=== PATIENT | female | born 1950 | race Asian ===

== ENCOUNTER 2024-09-15 11:41 | Emergency (ER) | payer MEDICARE, SELFPAY ==
[2024-09-15 11:44] VITALS: BP 158/69; PULSE 61; RESP 14; TEMP 37.2; O2SAT 98
[2024-09-15 12:44] VITALS: BP 140/78; PULSE 60; RESP 18; TEMP 37; O2SAT 98
[2024-09-15] MEDS: Ondansetron 4 MG/2 ML Vial IV (12:59)
[2024-09-15] MEDS: 0.9% Normal Saline (1000mL) 1,000 ML 999 ML IV (12:59)
[2024-09-15 13:00] VITALS: BP 147/68; PULSE 61; RESP 18; O2SAT 98
[2024-09-15 13:00] LABS: Absolute Lymphocyte Count 1.78 X10^3/uL (0.83-4.51); Absolute Neutrophil Count 4.5 X10^3/uL (2.0-7.7); Basophil# 0.09 X10^3/uL; Basophil% 1.3 % (0-1); Eosinophil# 0.09 X10^3/uL; Eosinophils% 1.3 % (0-5); Hemoglobin 12.1 g/dL (12.0-15.0); Lymphocyte # 1.78 X10^3/ul (0.83-4.51); Lymphocyte % 25.5 % (19-41); Mean Corpuscular Hgb 24.8 pg (27.0-32.0); Mean Corpuscular Volume 79.9 fL (81-99); Mean Platelet Vol. 10.8 fl (6.2-12.0); Monocyte% 7.2 % (0-10); NRBC Flagged by Analyzer 0 % (0-5); Neutrophil % 64.3 % (47-70); Platelet Count 223 K/mm3 (150-450); RBC Distribution Width CV 15.2 % (11.6-14.6); RBC Distribution Width SD 43.8 fl (35.1-43.9); Red Blood Count 4.88 M/mm3 (4.2-5.4)
--- NOTE | 2024-09-15 13:14 | EX.ED.DYSGE1 ---
HPI <TRUMAN Rhoades - Last Filed: 09/15/24 15:29> History of Present Illness Chief Complaint: Weakness Narrative Narrative: Patient presenting today with her daughter and son-in-law due to generalized weakness, constipation, and vomiting she has had over the past few days. She has been constipated for about 4 days, yesterday she took Dulcolax and MiraLAX and had a small watery bowel movement, she is passing gas. No history of bowel obstruction. She has had a few episodes of vomiting over the past 2 days. Patient denies having abdominal pain, fevers, chills, flulike symptoms, chest pain, and shortness of breath. She has a PMH of YEE, HTN, T2DM, and GERD. Patient is Cantonese speaking, her family is interpreting. PFSH <TRUMAN Rhoades - Last Filed: 09/15/24 15:29> PFSH Home Medications ?Medication ?Instructions ?Recorded ?Last Taken ?Type guaifenesin 600 mg tablet, 600 mg PO BID ##14 07/10/14 Unknown Rx extended release 12 hr (Mucus Relief ER) ondansetron 4 mg disintegrating 4 mg PO Q8H PRN PRN Nausea #10 tabs 09/15/24 Unknown Rx tablet Allergy/AdvReac Type Severity Reaction Status Date / Time No Known Allergies Allergy Verified 09/15/24 11:45 Social History Smoking Status: Never smoker ROS <TRUMAN Rhoades - Last Filed: 09/15/24 15:29> ROS ED Constitutional Constitutional ED: Denies chills or fever(s) Cardiovascular Cardiovascular: Denies chest pain Respiratory/Chest Respiratory/Chest: Denies cough or dyspnea Gastrointestinal Gastrointestinal: Reports constipation, nausea and vomiting; Denies abdominal pain or diarrhea Genitourinary Genitourinary ED: Denies dysuria or hematuria Musculoskeletal Musculoskeletal: Denies arthralgias or myalgias Integumentary Denies rash Neurologic Neurologic: Reports weakness EXAM <TRUMAN Rhoades - Last Filed: 09/15/24 15:29> Physical Exam Const Vital Signs: 09/15/24 11:44 09/15/24 11:47 09/15/24 12:44 Temperature 98.9 F 98.6 F Temperature Source Oral Temporal Pulse Rate 61 60 Respiratory Rate 14 18 Respiratory Effort Normal Respiratory Pattern Normal Blood Pressure 158/69 H 140/78 H Blood Pressure Mean 98 98 Pulse Ox 98 98 Oxygen Delivery Method Room Air Room Air 09/15/24 13:00 09/15/24 14:00 09/15/24 15:16 Temperature 98 F Temperature Source Pulse Rate 61 61 60 Respiratory Rate 18 18 16 Respiratory Effort Respiratory Pattern Blood Pressure 147/68 H 133/54 H 121/57 H Blood Pressure Mean 94 80 78 Pulse Ox 98 98 100 Oxygen Delivery Method Room Air Room Air Positive well nourished, well developed and no apparent distress General Appearance ED: well developed HEENT Reports normocephalic and head/scalp atraumatic Mouth ED: Yes moist mucous membranes normal Eyes PERRL and EOMs intact bilaterally Neck full ROM and supple Chest Wall inspection of chest normal Resp normal respiratory effort and clear to auscultation bilaterally Cardio regular rate and regular rhythm GI soft to palpation, non-tender, non-distended and no masses Back/Spine normal ROM and normal to inspection Extremity normal to inspection and full ROM Neuro oriented x3, CN's II-XII intact bilaterally, moves all extremities, no focal motor deficits and no sensory deficits noted Sensorium / Orientation: awake and alert Psych mental status grossly normal and thought process normal Skin no rashes or lesions noted and no wounds <Dr. Chris Cervantes DO - Last Filed: 09/15/24 15:10> Physical Exam Const Vital Signs: 09/15/24 11:44 09/15/24 11:47 09/15/24 12:44 Temperature 98.9 F 98.6 F Temperature Source Oral Temporal Pulse Rate 61 60 Respiratory Rate 14 18 Respiratory Effort Normal Respiratory Pattern Normal Blood Pressure 158/69 H 140/78 H Blood Pressure Mean 98 98 Pulse Ox 98 98 Oxygen Delivery Method Room Air Room Air 09/15/24 13:00 09/15/24 14:00 09/15/24 15:16 Temperature 98 F Temperature Source Pulse Rate 61 61 60 Respiratory Rate 18 18 16 Respiratory Effort Respiratory Pattern Blood Pressure 147/68 H 133/54 H 121/57 H Blood Pressure Mean 94 80 78 Pulse Ox 98 98 100 Oxygen Delivery Method Room Air Room Air MDM <Guera Cannon PA - Last Filed: 09/15/24 15:29> MDM MDM Narrative Medical decision making narrative: Patient presenting today due to generalized weakness, constipation, nausea, and vomiting that have been ongoing over the past few days. The nausea and vomiting started 2 days ago. She has been constipated over the past 4 days but has passed a small amount of stool and is still passing gas. She started a bowel regimen consisting of Dulcolax and MiraLAX yesterday. She is nontoxic-appearing. She denies having abdominal pain, her abdomen is soft and nontender. She will be given IV fluids and Zofran. Labs will be obtained to assess for leukocytosis, electrolyte derangement, hepatobiliary etiology, pancreatitis, LUIZ, and UTI. Her CBC, CMP, lipase, and UA are unremarkable. Acute abdominal x-ray shows constipation. No evidence of bowel obstruction. On reexamination she reports significant improvement of her symptoms. Her nausea is significantly improved. I will give her a prescription for Zofran for home. Recommended she follow-up closely with her PCP, return instructions discussed and patient discharged home in stable condition. She is to continue her bowel regimen. Lab Data Attestation: I reviewed the patient's lab results. Labs: Laboratory Results - last 24 hr 09/15/24 09/15/24 12:49 14:31 WBC 7.0 RBC 4.88 Hgb 12.1 Hct 39.0 MCV 79.9 L MCH 24.8 L MCHC 31.0 L RDW Std Deviation 43.8 RDW Coeff of Keshav 15.2 H Plt Count 223 MPV 10.8 Immature Gran % (Auto) 0.400 Neut % (Auto) 64.3 Lymph % (Auto) 25.5 [place] % (Auto) 7.2 Eos % (Auto) 1.3 Baso % (Auto) 1.3 H Absolute Neuts (auto) 4.5 Absolute Lymphs (auto) 1.78 Nucleated RBC % 0 Sodium 137 Potassium 4.6 Chloride 102 Carbon Dioxide 25.4 Anion Gap 9 BUN 11 Creatinine 0.84 Est GFR (MDRD) Non-Af 72 BUN/Creatinine Ratio 13.1 Glucose 111 H Calcium 10.1 Total Bilirubin 0.55 AST 35 H ALT 15 Alkaline Phosphatase 75 Total Protein 7.6 Albumin 4.1 Globulin 3.5 Albumin/Globulin Ratio 1.2 Lipase 38 Urine Color Straw Urine Clarity Clear Urine pH 6.5 Ur Specific [place] 1.010 Urine Protein Negative Urine Glucose (UA) Normal Urine Ketones 5 H Urine Occult Blood Negative Urine Nitrite Negative Urine Bilirubin Negative Urine Urobilinogen Normal Ur Leukocyte Esterase Negative Urine RBC 0 SEEN Urine WBC 0 SEEN Ur Squamous Epith Cells 0 SEEN Urine Bacteria 0 SEEN Urine Mucus 0 SEEN Radiography X-Ray: Read by ED Physician Diagnostic Testing: Clinical Impression(s) from Imaging Studies Acute Abdomen Series 09/15/24 13:52 IMPRESSION: Fecal retention in the colon consistent with constipation. Reading Location: [facility] <Dr. Chris Cervantes, DO - Last Filed: 09/15/24 15:10> [facility] Lab Data Labs: Laboratory Results - last 24 hr 09/15/24 09/15/24 12:49 14:31 WBC 7.0 RBC 4.88 Hgb 12.1 Hct 39.0 MCV 79.9 L MCH 24.8 L MCHC 31.0 L RDW Std Deviation 43.8 RDW Coeff of Keshav 15.2 H Plt Count 223 MPV 10.8 Immature Gran % (Auto) 0.400 Neut % (Auto) 64.3 Lymph % (Auto) 25.5 [place] % (Auto) 7.2 Eos % (Auto) 1.3 Baso % (Auto) 1.3 H Absolute Neuts (auto) 4.5 Absolute Lymphs (auto) 1.78 Nucleated RBC % 0 Sodium 137 Potassium 4.6 Chloride 102 Carbon Dioxide 25.4 Anion Gap 9 BUN 11 Creatinine 0.84 Est GFR (MDRD) Non-Af 72 BUN/Creatinine Ratio 13.1 Glucose 111 H Calcium 10.1 Total Bilirubin 0.55 AST 35 H ALT 15 Alkaline Phosphatase 75 Total Protein 7.6 Albumin 4.1 Globulin 3.5 Albumin/Globulin Ratio 1.2 Lipase 38 Urine Color Straw Urine Clarity Clear Urine pH 6.5 Ur Specific [place] 1.010 Urine Protein Negative Urine Glucose (UA) Normal Urine Ketones 5 H Urine Occult Blood Negative Urine Nitrite Negative Urine Bilirubin Negative Urine Urobilinogen Normal Ur Leukocyte Esterase Negative Urine RBC 0 SEEN Urine WBC 0 SEEN Ur Squamous Epith Cells 0 SEEN Urine Bacteria 0 SEEN Urine Mucus 0 SEEN Radiography Diagnostic Testing: Clinical Impression(s) from Imaging Studies Acute Abdomen Series 09/15/24 13:52 IMPRESSION: Fecal retention in the colon consistent with constipation. Reading Location: [facility] Treatment and Re-Evaluation :: I have personally performed a face to face assessment of the patient and have reviewed the REN Note. I performed a substantive portion of the visit including all aspects of the following. My squires findings include: History: Patient presents with constipation, nausea, and vomiting that has been getting worse over the last 3 to 4 days. Family states it is gradually getting worse. Family states patient had a recent cough. Family states she has not had a bowel movement in last 3 to 4 days. Family states the patient has not been eating or drinking much because of the constipation. Family denies any fevers or chills. Exam: Vital signs are stable. Patient is afebrile. Patient is in no acute distress. Oral mucosa is pink and moist. Neck is supple. Trachea is midline. There is no JVD. Heart was regular rate and rhythm. Lungs are clear and equal bilaterally. Abdomen is soft. Bowel sounds are normal. There is no tenderness. There is no rebound or guarding noted. There is no distention noted. Cranial nerves II through XII are intact. There are no focal motor or sensory deficits noted. Medical Decision Making: Differential diagnosis includes dehydration, electrolyte abnormality, constipation, bowel obstruction, urinary tract infection, and pancreatitis. CBC will be obtained to assess for leukocytosis and anemia. Comprehensive metabolic profile will be obtained to assess for hepatic function, renal function, and electrolyte abnormality. Lipase will be obtained to assess for pancreatitis. Urinalysis will be obtained to assess for urinary tract infection and hematuria. Acute abdominal x-rays will be obtained to assess for constipation, bowel obstruction, perforation. Patient was given IV fluids and Zofran. CBC was reviewed and was within normal limits. Comprehensive metabolic profile was reviewed and was within normal limits. Lipase was reviewed and was normal at 38. Acute abdominal x-rays were obtained. There are 5 views. On my independent interpretation, there he has retained stool throughout the colon suggestive of constipation. There is no free air or evidence of obstruction. Radiologist also interpreted the x-rays and agrees. Urinalysis was reviewed. There is no evidence of urinary tract infection or hematuria. Patient was feeling better on reevaluation. Patient and family were advised of the findings. Patient was instructed to follow-up with her primary care physician in 5 to 7 days. Family understood and was agreeable with the plan. All questions were answered. Discharge Plan Triage Chief Complaint: Weakness ED Midlevel Provider: Guera Cannon ED Provider: Chris Cervantes Dx/Rx/DC Orders Clinical Impression: Weakness, Nausea & vomiting, Constipation Instructions: ED Constipation (Adult), ED Vomiting (Adult) Prescriptions: New ondansetron 4 mg tablet,disintegrating 4 mg PO Q8H PRN PRN (Reason: Nausea) Qty: 10 0RF No Action guaifenesin [Mucus Relief ER] 600 MG tablet 600 mg PO BID Qty: 14 0RF Primary Care Provider: Lou Kelley Referrals: Care Physician,No Primary [Non-Staff] - Activity Restrictions/Additional Instructions: Follow-up with your PCP in the next 5 to 7 days, return for any worsening symptoms. Print Language: Indonesian Disposition Disposition: Home, Self Care Discharge Date/Time: 09/15/24 15:25
[2024-09-15 13:30] LABS: Lipase 38 U/L (13-75)
[2024-09-15 13:32] LABS: ALB/GLOB Ratio 1.2 RATIO (0.9-2.4); AST(SGOT) 35 U/L (<=31); Alanine Aminotransfer ALT/SGPT 15 U/L (<=34); Albumin, Serum 4.1 g/dL (3.4-4.8); Alkaline Phosphatase 75 U/L (35-104); Anion Gap 9 (5-15); BUN 11 mg/dL (4-19); BUN/Creat Ratio 13.1 RATIO (10-20); Calcium,Total 10.1 mg/dL (7.6-11.0); Carbon Dioxide 25.4 mmol/L (21.0-32.0); Chloride 102 mmol/L (98-108); Creatinine, Serum 0.84 mg/dL (0.70-1.20); EST Glomerular Filtration Rate 72 (>60); Globulin 3.5 g/dL (2.2-4.2); Glucose 111 mg/dL (70-99); Potassium 4.6 mmol/L (3.3-5.1); Protein, Total 7.6 g/dL (5.9-8.4); Sodium Level 137 mmol/L (133-145); Total Bilirubin 0.55 mg/dL (0.00-1.30)
--- NOTE | 2024-09-15 13:52 | RAD_ITS ---
EXAM: XR Abdomen, 2 Views and XR Chest, 1 View CLINICAL INDICATION: CONSTIPATION TECHNIQUE: Frontal view of the chest, frontal view of the abdomen/pelvis and upright or decubitus view of the abdomen. COMPARISON: No relevant prior studies available. FINDINGS: LUNGS AND PLEURAL SPACES: Multiple tubular opacity over the right abdomen, could be ingested material or external to the patient. No pneumothorax. HEART: Unremarkable. No cardiomegaly. MEDIASTINUM: Unremarkable. Normal mediastinal contour. INTRAPERITONEAL SPACE: No free air. GASTROINTESTINAL TRACT: Fecal retention in the colon consistent with constipation. No dilation. BONES/JOINTS: Unremarkable. No acute fracture. RAD/Acute Abd Inc Chest (Portable) IMPRESSION: Fecal retention in the colon consistent with constipation. Reading Location: [facility]
[2024-09-15 14:00] VITALS: BP 133/54; PULSE 61; RESP 18; O2SAT 98
[2024-09-15 14:36] LABS: Bacteria 0 SEEN /hpf (None Seen); Mucous, Urine 0 SEEN /hpf (<or=2+); Squamous Epithelial Cells - UA 0 SEEN /hpf (5-10); White Blood Cells 0 SEEN /hpf (0-5)
[2024-09-15 14:41] LABS: Color, Urine Straw (Yellow); Glucose, Dipstick Normal (Normal); Ketone-Dipstick 5 mg/dl (Negative); Leukocyte Esterase-Dipstick Negative /ul (Negative); Nitrite-Dipstick Negative (Negative); Occult Blood-Urine Negative /ul (Negative); Protein-Dipstick Negative (Negative); Urine Bilirubin Dipstick Negative (Negative); Urine Clarity Clear (Clear); Urine Urobilinogen Normal (Normal); Urine pH 6.5 (5.0 - 8.0)
--- NOTE | 2024-09-15 14:58 | CHAPLAIN ---
Type of Pastoral Visit _x__ Initial Visit ___ Follow-up Visit ___ On-call Visit ___ General Patient Visit ___ Spiritual Assessment ___ Family Conference ___ Bereavement ___ Rapid Response ___ Code Blue ___ Other (describe below) Pastoral Care Referral From ___ Patient _x__ Family ___ Nurse ___ Physician ___ Indoor Plant Technician ___ Parent Trainer ___ Other (describe below) Sacrament/Intervention _x__ Active listening ___ Anointing ___ Judaism ___ Bereavement ___ Communion ___ Katie exploration ___ ___ Life review _x__ Prayer ___ Reconciliation ___ Sacrament of Sick _x__ Supportive presence ___ Wedding ___ Other (describe below) Pastoral Comments met family members in the waiting room while on duty in the ED; patient does not speak Tongan but Hungarian; family speaks Tongan and asked if patient would like a prayer to which all responded yes; offered a prayer and the ryan translated for her; later met more family members in the hallway who explained more of the family situation and failing health of both parents; offered supportive presence and listening ear; offered to follow up if patient is admitted
[2024-09-15 15:09] LABS: Red Blood Cells-Urine 0 SEEN /hpf (0-5)
[2024-09-15 15:16] VITALS: BP 121/57; PULSE 60; RESP 16; TEMP 36.6; O2SAT 100
== END 2024-09-15 15:25 | disposition home or self-care (01) ==
PROVIDERS: Physician Assistant; Emergency Provider Emergency Medicine; PCP Internal Medicine; Visit Provider Emergency Medicine
DX: R11.2 Nausea with vomiting, unspecified (principal); E11.9 Type 2 diabetes mellitus without complications; R53.1 Weakness; K59.00 Constipation, unspecified; I10 Essential (primary) hypertension; K21.9 Gastro-esophageal reflux disease without esophagitis; G47.33 Obstructive sleep apnea (adult) (pediatric)
CPT/HCPCS: 74022; 80053; 81001; 83690; 85025; 96361; 96374; 99284; P9612; A4216; J2405

== ENCOUNTER 2025-04-02 14:20 | Emergency (ER) | payer MEDICARE, SELFPAY ==
[2025-04-02 14:20] VITALS: BP 131/77; PULSE 72; RESP 17; TEMP 36.4; O2SAT 98; BMI 32.6
--- NOTE | 2025-04-02 15:18 | EKG12_ITS ---
Test Reason : ABD PAIN Blood Pressure : */* mmHG Vent. Rate : 72 BPM Atrial Rate : 72 BPM P-R Int : 142 ms QRS Dur : 82 ms QT Int : 372 ms P-R-T Axes : 64 17 34 degrees QTcB Int : 407 ms Normal sinus rhythm Normal ECG Confirmed by DEVON CORONADO, JOSE ([id number]), staff editor MANJULA AGRAWAL ([id number]) on 04/05/2025 6:30:43 AM Referred By: Confirmed By: JOSE OSORIO MD
[2025-04-02 15:20] VITALS: BP 132/63; PULSE 70; RESP 15; O2SAT 97
--- NOTE | 2025-04-02 15:20 | CT_ITS ---
PROCEDURE: ABDOMEN/PELVIS W IV CONT ONLY 04/02/2025 REASON FOR EXAM: ABDOMINAL PAIN TECHNIQUE: Procedure Code: [id number] Modality: CT Procedure: ABDOMEN/PELVIS W IV CONT ONLY Coronal and Sagittal reconstruction series were provided. CONTRAST: 100 cc of Isovue 370 intravenous contrast One or more dose reduction techniques were used (e.g., Automated exposure control, adjustment of the mA and/or kV according to patient size, use of iterative reconstruction technique. COMPARISON: Abdominal x-ray 09/15/2024 FINDINGS: Lung bases: Mild dependent atelectasis Liver: Normal size. No mass. Gallbladder: The gallbladder is not visualized and likely surgically absent. The common bile duct is dilated up to 18 mm which may reflect reservoir phenomenon secondary to a post cholecystectomy state. There is mild intrahepatic bile duct dilation. Spleen: Normal size. Pancreas: Normal size without evidence of mass surrounding inflammation or ductal dilation. Adrenals: Unremarkable. Kidneys: Scattered bilateral renal cysts. Normal-size. No hydronephrosis or renal calculi. Bladder: Unremarkable. Reproductive Organs: Normal uterine size and contour. Ovaries are unremarkable. Bowel: No bowel obstruction. No inflammatory changes. Appendix: The appendix is not identified. There is no inflammatory process identified in the right lower quadrant to suggest appendicitis. Lymph nodes: Unremarkable. Vasculature: Moderate atherosclerotic calcifications of the abdominal aorta and its branches. No aneurysm. Peritoneum / Retroperitoneum: No free fluid or air. Bones: Degenerative changes of the spine. No acute fractures. CT/Abdomen/Pelvis W IV Cont ONLY IMPRESSION: 1. Probable cholecystectomy with associated dilatation of the common bile duct and intrahepatic ducts, likely secondary to reservoir phenomenon. 2. Scattered bilateral renal cysts. 3. No acute findings in the abdomen or pelvis as imaged. Reading Location: [facility]
--- NOTE | 2025-04-02 15:21 | ED.VIS.GI ---
HPI HPI - GI History of Present Illness Chief Complaint: GI Bleed Informant: patient and spouse/S.O. Narrative Narrative: Patient is a 74-year-old female with history of GI bleeding from gastritis, type 2 diabetes mellitus, hyperlipidemia, YEE (on BiPAP), colon polyps and prior cholecystectomy presenting with worsening epigastric abdominal pain as well as dark stools. Patient had worsening epigastric abdominal pain for the past 1 to 2 days. States it radiates up into her chest as a mild pain on the right side of her abdomen as well. Is made worse with eating. Has had nausea with no vomiting today however she did have vomiting a couple weeks ago that had since resolved. She has been constipated been taking Dulcolax with no significant results. States her bowel movements have been hard and ball shaped and dark in color. Last bowel movement was this morning. She is currently on semaglutide but not had it for the past 2 days because of symptoms. She is previously been prescribed Carafate but has not been taking. She does take omeprazole. Was initially at urgent care they did an x-ray which was largely negative and she was sent to the ER for further evaluation. [facility] Medical History (Updated 04/02/25 @ 17:[address] Michelle Maguire, ) Dementia Diabetes type 2 Home Medications ?Medication ?Instructions ?Recorded ?Last Taken ?Type guaifenesin 600 mg tablet, 600 mg PO BID ##14 07/10/14 Unknown Rx extended release 12 hr (Mucus Relief ER) ondansetron 4 mg disintegrating 4 mg PO Q8H PRN PRN Nausea #10 tabs 09/15/24 Unknown Rx tablet polyethylene glycol 3350 17 17 g PO DAILY PRN constipation 04/02/25 Unknown Rx gram/dose oral powder (Miralax) #119 grams sucralfate 1 gram tablet (Carafate) See Rx Instructions .Route 04/02/25 Unknown Rx .COMPLEX #60 tabs Allergy/AdvReac Type Severity Reaction Status Date / Time No Known Allergies Allergy Verified 04/02/25 14:24 Social History Smoking Status: Never smoker ROS ROS ED Constitutional Constitutional ED: Denies chills or fever(s) Cardiovascular Cardiovascular: Denies chest pain Respiratory/Chest Respiratory/Chest: Denies cough Gastrointestinal Gastrointestinal: Reports abdominal pain, constipation, melena, nausea and vomiting Musculoskeletal Musculoskeletal: Denies arthralgias, back pain or myalgias Integumentary Denies rash Neurologic Neurologic: Denies weakness Hematologic/Lymphatic Hematologic/Lymphatic: Denies easy bleeding or easy bruising EXAM Physical Exam Const Vital Signs: 04/02/25 14:20 04/02/25 15:20 04/02/25 16:00 Temperature 97.6 F L Temperature Source Oral Pulse Rate 72 70 71 Respiratory Rate 17 15 16 Blood Pressure 131/77 H 132/63 H 135/62 H Blood Pressure Mean 95 86 86 Pulse Ox 98 97 96 Oxygen Delivery Method Room Air Room Air Room Air 04/02/25 17:00 04/02/25 18:20 Temperature 98.3 F Temperature Source Pulse Rate 71 73 Respiratory Rate 16 18 Blood Pressure 131/67 H 141/81 H Blood Pressure Mean 88 101 Pulse Ox 100 100 Oxygen Delivery Method Room Air Positive well nourished and well developed General Appearance ED: well developed and NAD; Negative for pallor HEENT Reports moist mucous membranes Eyes PERRL Neck supple Resp normal respiratory effort and clear to auscultation bilaterally Cardio regular rate and regular rhythm GI GI Narrative: Chaperoned rectal exam performed?there is light brown stool in rectal exam with no fecal impaction appreciated Auscultation: hypoactive bowel sounds Palpation: soft and tender epigastric and RUQ; Negative for guarding or rigid Neuro moves all extremities Sensorium / Orientation: alert, oriented to person, oriented to place and oriented to time Motor Exam: Negative for general weakness Psych mental status grossly normal and thought process normal Skin no wounds General Skin Exam: Negative for jaundice or pallor MDM MDM MDM Narrative Medical decision making narrative: Patient evaluated for concern of dark stools, epigastric abdominal pain and some constipation. Was seen in urgent care (note was reviewed from earlier today), had an x-ray which was largely normal and sent to the ER for further evaluation. She does have a history of gastritis with hemorrhage and is on omeprazole is not currently taking any Carafate. Differential includes not limited to gastritis, GERD, peptic ulcer disease, gastric ulcer disease, colitis, diverticulitis, pancreatitis, bowel obstruction, referred cardiac symptoms, constipation, LUIZ. Patient overall well-appearing. Is given IV Protonix and Zofran with improvement of symptoms and states she is feeling better. CBC shows a mild anemia with a hemoglobin 11.4 however this appears near her baseline going back 10 years. Her white blood cell count is normal lower suspicion for acute ensure abdominal infection. Lipase is normal I will slow her switch in for pancreatitis induced by semaglutide. CMP normal. Had low suspicion for choledocholithiasis (patient said prior cholecystectomy). CT of the abdomen pelvis shows some chronic changes associated prior cholecystectomy but no acute process. EKG shows normal sinus rhythm with no acute ischemic changes I have a low suspicion for this being referred cardiac symptoms. I do not think she requires trending of her troponin level. Patient will be discharged home with referral for GI. Will be restarted on Carafate and encouraged to continue her PPI therapy. Is also given a prescription for MiraLAX to help with constipation. Given return precautions. Patient has been verbalized agreement or stands plan. Patient remains hemodynamically stable in the emergency room. Lab Data Attestation: I reviewed the patient's lab results. Labs: Laboratory Results - last 24 hr 04/02/25 15:18 WBC 9.8 RBC 4.57 Hgb 11.4 L Hct 37.0 MCV 81.0 MCH 24.9 L MCHC 30.8 L RDW Std Deviation 44.5 H RDW Coeff of Keshav 15.2 H Plt Count 199 MPV 10.2 Immature Gran % (Auto) 0.800 Neut % (Auto) 66.8 Lymph % (Auto) 22.5 Toombs % (Auto) 8.0 Eos % (Auto) 1.1 Baso % (Auto) 0.8 Absolute Neuts (auto) 6.5 Absolute Lymphs (auto) 2.20 Nucleated RBC % 0 Sodium 137 Potassium 4.5 Chloride 102 Carbon Dioxide 24.3 Anion Gap 10 BUN 15 Creatinine 0.84 Estim Creat Clear Calc 50.96 Est GFR (MDRD) Non-Af 72 BUN/Creatinine Ratio 18.1 Glucose 92 Calcium 9.6 Total Bilirubin 0.33 AST 18 ALT 20 Alkaline Phosphatase 71 Total Protein 6.5 Albumin 3.9 Globulin 2.6 Albumin/Globulin Ratio 1.5 Lipase 44 Radiography Diagnostic Testing: Clinical Impression(s) from Imaging Studies Abdomen/Pelvis CT 04/02/25 15:20 IMPRESSION: 1. Probable cholecystectomy with associated dilatation of the common bile duct and intrahepatic ducts, likely secondary to reservoir phenomenon. 2. Scattered bilateral renal cysts. 3. No acute findings in the abdomen or pelvis as imaged. Reading Location: [facility] Rhythm Strip Rhythm Strip: Sinus Rhythm Rate: 72 Ectopy: None EKG Initial EKG: Attestation: I personally reviewed and interpreted this EKG as follows: Interpretation: Sinus Rhythm Comments: Normal sinus rhythm rate of 72 bpm Normal axis Normal intervals Normal ST segments Discharge Plan Triage Chief Complaint: GI Bleed ED Provider: Michelle Maguire Dx/Rx/DC Orders Clinical Impression: Abdominal pain, acute, epigastric, Constipation Instructions: ED Peptic Ulcer Prescriptions: New sucralfate [Carafate] 1 gram tablet See Rx Instructions .ROUTE .COMPLEX Qty: 60 0RF Rx Instructions: 1 g orally before meals and at bedtime polyethylene glycol 3350 [Miralax] 17 gram/dose powder 17 g PO DAILY PRN (Reason: constipation) Qty: 119 0RF No Action guaifenesin [Mucus Relief ER] 600 MG tablet 600 mg PO BID Qty: 14 0RF ondansetron 4 mg tablet,disintegrating 4 mg PO Q8H PRN PRN (Reason: Nausea) Qty: 10 0RF Primary Care Provider: Lou Kelley Referrals: Lou Kelley MD [Primary Care Provider, Internal Medicine] Friend,DO Franky [Med Staff - Active Staff, Gastroenterology] Activity Restrictions/Additional Instructions: Your lab work is not consistent with any internal bleeding/bleeding ulcer however I suspect your pain is from inflammation and irritation of your stomach from this (possibly an ulcer). Try to eat a low acid diet avoid spicy foods and follow-up with a GI specialist. Make sure you are taking your omeprazole twice a day in addition to the sucralfate that was prescribed today to help with your pain. Print Language: Estonian Disposition Disposition: Home, Self Care Discharge Date/Time: 04/02/25 18:54
[2025-04-02 15:29] LABS: Hematocrit 37.0 % (37-47); Hemoglobin 11.4 g/dL (12.0-15.0); Immature Granulocytes Count 0.080 X10^3/uL (0.0-0.0); Mean Corp Hgb Conc 30.8 g/dL (32-36); Mean Corpuscular Volume 81.0 fL (81-99); Mean Platelet Vol. 10.2 fl (6.2-12.0); NRBC Flagged by Analyzer 0 % (0-5); Platelet Count 199 K/mm3 (150-450); RBC Distribution Width CV 15.2 % (11.6-14.6); RBC Distribution Width SD 44.5 fl (35.1-43.9); Red Blood Count 4.57 M/mm3 (4.2-5.4); White Blood Count 9.8 K/mm3 (4.4-11.0)
[2025-04-02] MEDS: Pantoprazole Sodium 40 MG in 0.9% Normal Saline (100mL MB+) 100 ML 300 MG IV (15:31)
[2025-04-02 15:45] LABS: AST(SGOT) 18 U/L (<=31); Alanine Aminotransfer ALT/SGPT 20 U/L (<=34); Albumin, Serum 3.9 g/dL (3.4-4.8); Alkaline Phosphatase 71 U/L (35-104); Anion Gap 10 (5-15); BUN 15 mg/dL (4-19); BUN/Creat Ratio 18.1 RATIO (10-20); Calcium,Total 9.6 mg/dL (7.6-11.0); Carbon Dioxide 24.3 mmol/L (21.0-32.0); Chloride 102 mmol/L (98-108); Estimated Creatinine Clearance 50.96 ml/min (50-250); Globulin 2.6 g/dL (2.2-4.2); Glucose 92 mg/dL (70-99); Lipase 44 U/L (13-75); Potassium 4.5 mmol/L (3.3-5.1)
[2025-04-02 16:00] VITALS: BP 135/62; PULSE 71; RESP 16; O2SAT 96
[2025-04-02 17:00] VITALS: BP 131/67; PULSE 71; RESP 16; O2SAT 100
[2025-04-02 18:20] VITALS: BP 141/81; PULSE 73; RESP 18; TEMP 36.8; O2SAT 100
== END 2025-04-02 18:54 | disposition home or self-care (01) ==
PROVIDERS: Emergency Provider Emergency Medicine; PCP Internal Medicine; Visit Provider Emergency Medicine
DX: R10.13 Epigastric pain (principal); F03.90 Unspecified dementia, unspecified severity, without behavioral disturbance, psychotic disturbance, mood disturbance, and anxiety; E11.9 Type 2 diabetes mellitus without complications; K59.00 Constipation, unspecified; D64.9 Anemia, unspecified; E78.5 Hyperlipidemia, unspecified; G47.33 Obstructive sleep apnea (adult) (pediatric); Z87.19 Personal history of other diseases of the digestive system; Z90.49 Acquired absence of other specified parts of digestive tract; Z86.0100 Personal history of colon polyps, unspecified; Z91.148 Patient's other noncompliance with medication regimen for other reason
CPT/HCPCS: 74177; 80053; 82274; 83690; 85025; 93005; 96365; 96375; 99283; Q9967; A4216; J2405